=== PATIENT | female | born 1965 | race Caucasian/White ===

== ENCOUNTER 2020-04-29 19:09 | Emergency (ER) | payer OTHER, SELFPAY ==
[~2020-04-29 19:09] MED LIST: ANTIVERT25 MG PO; ZOFRAN4 MG PO
[2020-04-29 23:17] LABS: BILIRUBIN NEGATIVE (NEGATIVE); BLOOD TRACE-INTACT Ery/uL (NEGATIVE); CLARITY CLEAR (CLEAR); COLOR YELLOW (YELLOW); GLUCOSE (U) NORMAL (NORMAL); LEUKOCYTES NEGATIVE Leu/uL (NEGATIVE); NITRITE NEGATIVE (NEGATIVE); PROTEIN NEGATIVE (NEGATIVE); SPECIFIC GRAVITY >=1.030 (1.001-1.030); UROBILINOGEN 0.2 mg/dL (0.2-1.0); pH 5.5 (5.0-9.0)
[2020-04-29 23:21] LABS: BACTERIA TRACE
[2020-04-29 23:22] LABS: CALCIUM OXALATE CRYSTALS MODERATE
[2020-04-29 23:39] LABS: BASOPHIL 0.3 % (0-2); EOSINOPHIL 3.2 % (0-5); HCT 40.8 % (37.0-47.0); LYMPHOCYTE 28.4 % (15-48); MCH 29.7 pg (25.0-31.0); MCHC 31.9 g/dL (32.0-36.0); MCV 93.2 fL (78.0-100.0); MONOCYTE 9.2 % (0-12); MPV 9.9 fL (6.0-9.5); NEUTROPHIL 58.4 % (41-80); NRBC 0; PLT 315 K/uL (150-400); RBC 4.38 M/uL (4.20-5.40); RDW 12.1 % (11.5-14.0)
[2020-04-29 23:57] LABS: BUN/CREAT RATIO (CALC) 25.6 RATIO; CREATININE 0.82 mg/dL (0.51-0.95)
[2020-04-30] MEDS ORDERED: DICLOFENAC SODI75 MG PO (00:09)
== END 2020-04-30 00:21 | disposition home or self-care (01) ==
LOC: FER 19:09
PROVIDERS: Emergency Medicine
DX: R10.9 Unspecified abdominal pain (principal); R11.0 Nausea; F17.210 Nicotine dependence, cigarettes, uncomplicated; Z90.49 Acquired absence of other specified parts of digestive tract; Z88.0 Allergy status to penicillin
CPT/HCPCS: 36415; 80048; 81001; 85025; J1885; J2405

== ENCOUNTER → 2020-12-12 | Day surgery (SDC) | payer OTHER ==
[~2020-12-12] VITALS: Ht 162.6 cm; Wt 95.4 kg
[~2020-12-12] MED LIST changes: +ASPIRIN EC81 MG PO; +BREO ELLIPTA 11 EACH INH; +DAILY VALUE1 EACH PO; +DICLOFENAC SODI75 MG PO; +NORCO 5-325 TA1 EACH PO; +ONDANSETRON ODT8 MG PO; +PROZAC20 MG PO; +SYMBICORT 80-10.2 GM INH; +VITAMIN D325 MC2 PO
[2020-12-12 08:15] LABS: HCT 43.2 % (37.0-47.0); HGB 14.3 g/dl (12.5-16.0); MCH 30.4 pg (25.0-31.0); MCHC 33.1 g/dL (32.0-36.0); MCV 91.7 fL (78.0-100.0); MPV 10.1 fL (6.0-9.5); RBC 4.71 M/uL (4.20-5.40); RDW 12.4 % (11.5-14.0); WBC 8.7 K/uL (4.0-10.5)
[2020-12-12 08:27] LABS: ALBUMIN 3.5 g/dL (3.4-5.0); BILIRUBIN - TOTAL 0.3 mg/dL (0.2-1.0); BUN/CREAT RATIO (CALC) 48.9 RATIO; CREATININE 0.45 mg/dL (0.51-0.95); GLOBULIN (CALCULATION) 3.6 g/dL; POTASSIUM 4.3 mmol/L (3.5-5.1); TOTAL PROTEIN 7.1 g/dL (6.4-8.2)
== END | disposition home or self-care (01) ==
LOC: FAS 07:21
PROVIDERS: Surgery
DX: K64.1 Second degree hemorrhoids (principal); K64.4 Residual hemorrhoidal skin tags; F41.9 Anxiety disorder, unspecified; F17.200 Nicotine dependence, unspecified, uncomplicated; Z88.1 Allergy status to other antibiotic agents; Z79.82 Long term (current) use of aspirin; Z79.899 Other long term (current) drug therapy
CPT/HCPCS: 36415; 80053; J1100; J2250; J7120